=== PATIENT | male | born 2000 | race Caucasian/White ===

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

== ENCOUNTER 2018-04-29 16:11 | Emergency (ER) | END 2018-04-29 18:02 | disposition home or self-care (01) ==

== ENCOUNTER 2018-04-30 17:24 | Emergency (ER) | payer SELFPAY ==
[~2018-04-30] VITALS: Wt 58.0 kg
[~2018-04-30 17:24] MED LIST: ACET500C5 PO; ASPI-826 PO; IBUP800T48 PO; MECL12.574 PO; ONDA4TAB14 PO
[2018-04-30] MEDS ORDERED: CEFTRIAXONE 1 GM/50 ML (PMX) 50 ML IVPB STA (18:13)
[2018-04-30] MEDS ORDERED: ONDANSETRON 4 MG INJ IV STA (18:13)
[2018-04-30] MEDS ORDERED: SOD CHLORIDE 0.9% 1,000 ML IV STA (18:13)
--- NOTE | 2018-04-30 18:16 | ERD ---
ER Documentation Chief Complaint Chief Complaint FEVER/VOMITING X 1 WEEK HPI 17-year-old male, returns to the emergency department 24 hours after being seen here and diagnosed with gastroenteritis. The patient is complaining of pers istent fever, sore throat, headache and general malaise. ROS All systems reviewed and are negative except as per history of present illness. Medications Home Meds Active Scripts Ibuprofen* (Motrin*) 400 Mg Tab, 400 MG PO Q8, #12 TAB Prov:KEVIN LERMA MD 04/30/18 Albuterol Sulfate* (Proair HFA*) 8.5 Gm Hfa.aer.ad, 2 PUFF INH Q4H PRN for WHEEZING AND SOB, #1 INHALER Prov:KEVIN LERMA MD 04/30/18 Ondansetron Hcl* (Zofran*) 4 Mg Tablet, 4 MG PO Q8H PRN for NAUSEA AND/OR VOMITI NG, #12 TAB Prov:KEVIN LERMA MD 04/30/18 Cephalexin* (Keflex*) 500 Mg Capsule, 500 MG PO QID for 7 Days, #28 CAP Prov:KEVIN LERMA MD 04/30/18 Ondansetron (Ondansetron Odt) 4 Mg Tab.rapdis, 4 MG PO Q6H PRN for NAUSEA AND/OR VOMITING, #20 TAB Prov:KATRINA HUFFMAN PA-C 04/29/18 Acetaminophen* (Tylophen*) 500 Mg Capsule, 1 CAP PO Q6H PRN for PAIN AND OR ELEVATED TEMP, #30 CAP Prov:KATRINA HUFFMAN PA-C 04/29/18 Ibuprofen* (Motrin*) 800 Mg Tab, 800 MG PO Q6, #30 TAB Prov:KATRINA HUFFMAN PA-C 04/29/18 Aspirin/Acetaminophen/Caffeine (Excedrin Extra Strength Caplet) 1 Each Tablet, 1 EACH PO Q6 PRN for HEADACHE, #20 TAB Prov:LINDSEY BAKER NP 06/14/17 Meclizine Hcl* (Antivert*) 12.5 Mg Tab, 12.5 MG PO Q6H PRN for DIZZINESS, #20 TAB Prov:LINDSEY BAKER [employer] 06/14/17 Allergies Allergies: Coded Allergies: No Known Allergy (Unverified , 05/14/11) PMhx/Soc History of Surgery: No Anesthesia Reaction: No Hx Neurological Disorder: No Hx Respiratory Disorders: No Hx Cardiac Disorders: No Hx Psychiatric Problems: Yes (Depression) Hx Miscellaneous Medical Probl: No Hx Alcohol Use: Yes (Occasional beers) Hx Substance Use: Yes (marijuana) Hx Tobacco Use: No Physical Exam Vitals Vital Signs Date Temp Pulse Resp B/P (MAP) Pulse Ox O2 O2 Flow FiO2 Time Delivery Rate 04/30/18 98.8 88 16 118/74 99 Room Air 20:06 (89) 04/30/18 101.0 18:36 04/30/18 101.0 18:36 04/30/18 101.3 98 18 121/57 99 17:30 (78) Physical Exam Const: No acute distress Head: Atraumatic Eyes: Normal Conjunctiva ENT: Tonsils enlarged, with bilateral exudates. Neck: Submandibular tender lymphadenopathy. Full range of motion. No meningismus. Resp: Clear to auscultation bilaterally Cardio: Regular rate and rhythm, no murmurs Abd: Soft, non tender, non distended. Normal bowel sounds Skin: No petechiae or rashes Back: No midline or flank tenderness Ext: No cyanosis, or edema Neur: Awake and alert Psych: Normal Mood and Affect Result Diagram: 04/30/18 1830 04/30/18 1830 Results 24 hrs Laboratory Tests Test 04/30/18 18:30 White Blood Count 11.1 10^3/ul Red Blood Count 4.97 10^6/ul Hemoglobin 14.9 g/dl Hematocrit 43.9 % Mean Corpuscular Volume 88.3 fl Mean Corpuscular Hemoglobin 30.0 pg Mean Corpuscular Hemoglobin Concent 33.9 g/dl Red Cell Distribution Width 13.0 % Platelet Count 238 10^3/UL Mean Platelet Volume 10.1 fl Immature Granulocytes % 0.300 % Neutrophils % 86.3 % Lymphocytes % 8.5 % Monocytes % 4.7 % Eosinophils % 0.0 % Basophils % 0.2 % Nucleated Red Blood Cells % 0.0 /100WBC Immature Granulocytes # 0.030 10^3/ul Neutrophils # 9.6 10^3/ul Lymphocytes # 1.0 10^3/ul Monocytes # 0.5 10^3/ul Eosinophils # 0.0 10^3/ul Basophils # 0.0 10^3/ul Nucleated Red Blood Cells # 0.0 10^3/ul Urine Color YELLOW Urine Clarity CLEAR Urine pH 6.0 Urine Specific [place] 1.024 Urine Ketones 2+ mg/dL Urine Nitrite NEGATIVE mg/dL Urine Bilirubin NEGATIVE mg/dL Urine Urobilinogen NEGATIVE mg/dL Urine Leukocyte Esterase NEGATIVE [place]/ul Urine Microscopic RBC 10 /HPF Urine Microscopic WBC 2 /HPF Urine Mucus MODERATE /HPF Urine Hemoglobin 1+ mg/dL Urine Glucose NEGATIVE mg/dL Urine Total Protein NEGATIVE mg/dl Sodium Level 142 mmol/L Potassium Level 3.8 mmol/L Chloride Level 103 mmol/L Carbon Dioxide Level 27 mmol/L Anion Gap 12 Blood Urea Nitrogen 11 mg/dl Creatinine 0.82 mg/dl Est Glomerular Filtrat Rate mL/min > 60 mL/min Glucose Level 98 mg/dl Calcium Level 9.4 mg/dl Total Bilirubin 0.3 mg/dl Direct Bilirubin 0.00 mg/dl Indirect Bilirubin 0.3 mg/dl Aspartate Amino Transf (AST/SGOT) 35 IU/L Alanine Aminotransferase (ALT/SGPT) 37 IU/L Alkaline Phosphatase 62 IU/L Total Protein 8.2 g/dl Albumin 4.6 g/dl Globulin 3.60 g/dl Albumin/Globulin Ratio 1.27 Lipase 53 U/L Current Medications Medications Dose Sig/Shannon Start Time Status Last (Trade) Ordered Route PRN Stop Time Admin Dose Reason Admin Sodium 1,000 ml @ Q1H STAT 04/30/18 DC 04/30/18 Chloride 1,000 mls/hr IV 18:13 18:36 04/30/18 19:12 Ondansetron 4 mg ONCE STAT 04/30/18 DC 04/30/18 HCl (Zofran IV 18:13 18:37 Inj) 04/30/18 18:23 Ceftriaxone 50 ml @ ONCE STAT 04/30/18 DC 04/30/18 Sodium 100 mls/hr IVPB 18:13 18:36 04/30/18 18:42 Ibuprofen 400 mg ONCE ONCE 04/30/18 DC 04/30/18 (Motrin) PO 18:30 18:36 04/30/18 18:31 650 mg ONCE ONCE 04/30/18 DC 04/30/18 Acetaminophen PO 18:30 18:36 (Tylenol 04/30/18 Tab) 18:31 Procedures/MDM Differential diagnosis include but not limited to: Tonsillar/pharyngeal infection bacterial/viral/fungal, parotitis, allergies, GERD. Less likely peritonsillar abscess, retropharyngeal abscess. No signs of upper respiratory obstruction Physical examination and clinical presentation consistent most likely with acute suppurative tonsillitis and urinary tract infection. During the ED course the patient remained stable, fever resolved with medications given in the ER, no new complaints. Clinical impression discussed with the patient who agrees with management. The patient is stable to be treated outpatient and will be discharged home with a Rx for antibiotic and ibuprofen. Some side effects of prescribed medications (headache, rash, nausea, vomiting, diarrhea, drowsiness, habituation, bleeding, hypertension, interactions with other medications) were reviewed. The patient was instructed to follow up with the primary care provider in the next 48h. If symptoms persist, worsen or new symptoms develop, then patient sh ould return to the ED immediately. Disclaimer: Inadvertent spelling and grammatical errors are likely due to EHR/dictation software use and do not reflect on the overall quality of patient care. Also, please note that the electronic time recorded on this note does not necessarily reflect the actual time of the patient encounter. Departure Diagnosis: Primary Impression: Fever Additional Impressions: Acute suppurative tonsillitis UTI (urinary tract infection) Condition: Stable Additional Instructions: Thank you very much for allowing us to participate in your care. Your health and safety is our top priority at [facility]. Call your primary care doctor TOMORROW for an appointment during the next 2-4 days and bring all the information and medications prescribed. Have prescriptions filled and follow precisely the directions on the label. If the symptoms get worse and your provider is unavailable, return to the Emergency Department immediately. KEVIN LERMA MD Apr 30, 2018 18:16
[2018-04-30] MEDS ORDERED: ACETAMINOPHEN 325 MG TAB PO ONE (18:30)
[2018-04-30] MEDS ORDERED: IBUPROFEN 200 MG TAB PO ONE (18:30)
[2018-04-30] MEDS ORDERED: CEPH-443 PO (19:51)
[2018-04-30] MEDS ORDERED: IBUP-1561 PO (19:51)
[2018-04-30] MEDS ORDERED: ONDA4TAB8 PO (19:51)
[2018-04-30] MEDS ORDERED: ALBU8.5H8 INH (19:51)
[2018-04-30 20:06] VITALS: BP 118/74; PULSE 88; RESP 16
== END 2018-04-30 20:08 | disposition home or self-care (01) ==
LOC: FTE 17:24
DX: J03.90 Acute tonsillitis, unspecified (principal); N39.0 Urinary tract infection, site not specified; Z79.82 Long term (current) use of aspirin
CPT/HCPCS: 80053; 81001; 83690; 85025; J0696; J2405; J7030; 36415; 96374; 96375